=== PATIENT | male | born 1970 | race Caucasian/White ===

== ENCOUNTER 2018-01-13 10:55 | Emergency (ER) | payer OTHER ==
[~2018-01-13] VITALS: Ht 195.6 cm; Wt 79.4 kg
[2018-01-13] MEDS ORDERED: HYDR1TAB94 PO (11:11)
[2018-01-13 11:32] LABS: BASOPHILS ABSOLUTE AUTO 0.07 K/mm3 (0.00-0.23); BASOPHILS PERCENT AUTO 1 % (0-2); EOSINOPHILS ABSOLUTE AUTO 0.03 K/mm3 (0.00-0.68); EOSINOPHILS PERCENT AUTO 0 % (0-6); Hematocrit 48.2 % (37.0-53.0); Hemoglobin 16.5 g/dL (13.5-17.5); IMMATURE GRAN ABSOLUTE AUTO 0.04 K/mm3 (0.00-0.10); IMMATURE GRAN PERCENT AUTO 0 % (0-1); LYMPHOCYTES ABSOLUTE AUTO 1.42 K/mm3 (0.84-5.20); LYMPHOCYTES PERCENT AUTO 15 % (21-46); MONOCYTES ABSOLUTE AUTO 1.17 K/mm3 (0.16-1.47); MONOCYTES PERCENT AUTO 12 % (4-13); Mean Corpuscular HGB Conc 34.2 g/dL (31.5-36.5); Mean Corpuscular Volume 96 fL (80-100); Mean Platelet Volume 9.1 fL (9.1-12.4); NEUTROPHILS ABSOLUTE AUTO 6.78 K/mm3 (1.96-9.15); NEUTROPHILS PERCENT AUTO 71 % (41-73); Platelet Count 360 K/mm3 (150-400); RDW Coefficient Variation 11.9 % (11.7-14.2); RDW Standard Deviation 42.5 fL (35.1-46.3); White Blood Cell Count 9.51 K/mm3 (4.00-11.30)
[2018-01-13 11:40] LABS: Alanine Aminotransfer (ALT/SGP 20 U/L (12-78); Albumin, Blood 3.5 g/dL (3.4-5.0); Albumin/Globulin Ratio 0.8 (0.8-1.8); Alk Phos 74 U/L (50-136); Anion Gap 7 mmol/L (6-16); Aspartate Aminotrans (AST/SGOT 12 U/L (12-37); Bilirubin, Total 0.6 mg/dL (0.1-1.0); Blood Urea Nitrogen 11 mg/dL (8-24); Bun/Creatinine Ratio 12.7 (12.0-20.0); CO2, Blood 27 mmol/L (21-32); Calcium, Blood 8.7 mg/dL (8.5-10.1); Chloride, Blood 101 mmol/L (98-108); Creatinine, Blood 0.86 mg/dL (0.60-1.20); Globulin, Blood 4.5 g/dL (2.2-4.0); Glomerular Filtration Rate >60 (60-); Glucose, Blood 101 mg/dL (70-99); Potassium, Blood 4.1 mmol/L (3.5-5.5); Sodium, Blood 135 mmol/L (136-145)
[2018-01-13] MEDS ORDERED: Levaquin500 MG PO (16:31)
[2018-01-13] MEDS ORDERED: Percocet 5-3251 EACH PO (16:31)
[2018-01-13] MEDS ORDERED: Cleocin HCl300 MG PO (16:31)
== END 2018-01-13 18:09 | disposition home or self-care (01) ==
LOC: ER 10:55
PROVIDERS: Emergency Medicine
DX: L02.211 Cutaneous abscess of abdominal wall (principal); F17.210 Nicotine dependence, cigarettes, uncomplicated; Z88.0 Allergy status to penicillin
CPT/HCPCS: 10030; 74177; 80053; 85025; 87070; 87075; 87076; 87205; 96361; 96365; 96375; 99284; J3010; J7030; Q9967